=== PATIENT | male | born 1965 | race African-American/Black ===

== ENCOUNTER 2017-06-08 21:36 | Emergency (ER) | payer MEDICAID ==
[2017-06-08] MEDS: ACETAMINOPHEN 325 MG TAB PO (22:37)
== END 2017-06-08 23:46 | disposition home or self-care (01) ==
LOC: FTE 21:36
DX: S69.92XA Unspecified injury of left wrist, hand and finger(s), initial encounter (principal); I10 Essential (primary) hypertension; W18.30XA Fall on same level, unspecified, initial encounter; Y92.9 Unspecified place or not applicable
CPT/HCPCS: 73130; 73130-LT; 99283-25

== ENCOUNTER 2017-11-13 14:08 | Emergency (ER) | payer MEDICAID ==
[2017-11-13] MEDS: DIPHTH/TET/ACEL PERTUSS (ADULT) 0.5 ML VIAL IM* (14:57)
[2017-11-13] MEDS: ACETAMINOPHEN 500 MG TAB PO (14:57)
== END 2017-11-13 16:03 | disposition home or self-care (01) ==
LOC: FTE 14:08
DX: S61.432A Puncture wound without foreign body of left hand, initial encounter (principal); I10 Essential (primary) hypertension; W26.8XXA Contact with other sharp object(s), not elsewhere classified, initial encounter; Y92.9 Unspecified place or not applicable; Z23 Encounter for immunization
CPT/HCPCS: 73130; 73130-LT; 90471; 90715; 99283-25

== ENCOUNTER 2018-02-20 23:11 | Emergency (ER) | payer MEDICAID | END 2018-02-21 01:41 | disposition home or self-care (01) | LOC: FTE 02-21 01:41 | DX: M54.5 Low back pain (principal); I10 Essential (primary) hypertension; F17.210 Nicotine dependence, cigarettes, uncomplicated | CPT/HCPCS: 72100; 99283-25 ==

== ENCOUNTER 2018-08-29 00:41 | Emergency (ER) | payer SELFPAY, MEDICAID | END 2018-08-29 04:59 | disposition left against medical advice (07) | LOC: FTE 04:59 | DX: Z53.21 Procedure and treatment not carried out due to patient leaving prior to being seen by health care provider (principal) ==

== ENCOUNTER 2018-09-02 22:47 | Emergency (ER) | payer MEDICAID ==
[2018-09-03] MEDS: HYDROCODONE/APAP (10/325) TAB PO (00:25)
== END 2018-09-03 01:23 | disposition home or self-care (01) ==
LOC: FTE 09-03 01:23
DX: M72.2 Plantar fascial fibromatosis (principal)
CPT/HCPCS: 99283; Z7502